=== PATIENT | female | born 1990 | race African-American/Black ===

== ENCOUNTER 2017-05-28 12:15 | Emergency (ER) | payer MEDICARE, OTHER ==
[2017-05-28 12:42] LABS: URINE SOURCE CLEAN CATCH
[2017-05-28 12:47] LABS: URINE APPEARANCE CLOUDY; URINE BILIRUBIN NEG (NEG); URINE BLOOD TRACE (NEG); URINE COLOR YELLOW; URINE GLUCOSE NEG (NEG); URINE KETONE NEG (NEG); URINE LEUKOCYTE ESTERASE 3+ (NEG); URINE NITRATE NEG (NEG); URINE PH 6.5 (5-8); URINE PROTEIN NEG (NEG); URINE SPECIFIC GRAVITY 1.016 (1.003-1.035); URINE UROBILINOGEN 0.2 MG/DL (NEG)
[2017-05-28 12:49] LABS: CULTURE INDICATED? YES; URBCS1 AUWI 0-2 /[HPF] (0-2); URINE BACTERIA AUWI 2+ (NEGATIVE); URINE SQUAMOUS EPITHELIAL CELL FEW /[HPF]
[2017-05-28 13:07] LABS: URINE YEAST PRESENT
[2017-05-28 13:08] LABS: UWBCS1 AUWI 25-50 (0-5)
[2017-05-31 13:14] LABS: CHLAMYDIA TRACH Not Detected (Not Detected); N GONOR Not Detected (Not Detected)
== END 2017-05-28 13:44 | disposition home or self-care (01) ==
LOC: CFTX 12:15 → CED 12:15 → CFTX 12:54
PROVIDERS: Nurse Practitioner
DX: B37.3 Candidiasis of vulva and vagina (principal); N76.0 Acute vaginitis
CPT/HCPCS: 81003; 84703; 87086; 87491; 87591; 87808; 87905; 99283

== ENCOUNTER 2017-07-26 18:26 | Emergency (ER) | payer MEDICARE, OTHER ==
[~2017-07-26] VITALS: Ht 162.6 cm; Wt 79.4 kg
[2017-07-26 18:42] LABS: URINE SOURCE CLEAN CATCH
[2017-07-26 18:54] LABS: URINE APPEARANCE CLOUDY; URINE BILIRUBIN NEG (NEG); URINE BLOOD 3+ (NEG); URINE COLOR YELLOW; URINE GLUCOSE NEG (NEG); URINE KETONE 1+ (NEG); URINE LEUKOCYTE ESTERASE 3+ (NEG); URINE NITRATE NEG (NEG); URINE PROTEIN NEG (NEG); URINE SPECIFIC GRAVITY 1.022 (1.003-1.035)
[2017-07-26 18:59] LABS: CULTURE INDICATED? YES; URINE BACTERIA AUWI 1+ (NEGATIVE); URINE SQUAMOUS EPITHELIAL CELL OCC /[HPF]; UWBCS1 AUWI 100-200 (0-5)
[2017-07-26 19:14] LABS: U HYALINE CASTS AUWI 0-2 /[LPF]; URINE MUCUS PRESENT
[2017-07-31 10:39] LABS: CHLAMYDIA TRACH Detected (Not Detected); N GONOR Not Detected (Not Detected)
== END 2017-07-26 20:09 | disposition home or self-care (01) ==
LOC: CED 18:26 → CFTX 18:26 → CED 19:06 → CFTX 19:06
PROVIDERS: Nurse Practitioner; Nurse Practitioner Family
DX: B37.3 Candidiasis of vulva and vagina (principal); N39.0 Urinary tract infection, site not specified
CPT/HCPCS: 81003; 84703; 87086; 87491; 87591; 87808; 87905; 99283